=== PATIENT | female | born 1995 | race Caucasian/White ===

== ENCOUNTER 2021-07-09 19:55 | Emergency (ER) | payer OTHER ==
[2021-07-09 21:02] LABS: HEMOGLOBIN 14.5 gm/dl (12.3-15.3); RED BLOOD COUNT 4.69 M/UL (4.00-5.10); WHITE BLOOD COUNT 10.8 K/UL (4.5-11.0)
[2021-07-09 21:25] LABS: BUN/CREATININE RATIO 20 (0-10)
[2021-07-10] MEDS ORDERED: IBUPROFEN600 MG PO (01:07)
[2021-07-10] MEDS ORDERED: ANUSOL-HC25 MG PR (01:07)
[2021-07-10] MEDS ORDERED: MIRALAX17 GM PO (01:07)
== END 2021-07-10 01:17 | disposition home or self-care (01) ==
LOC: ER1 19:55
PROVIDERS: Physician Assistant Medical
DX: S36.63XA Laceration of rectum, initial encounter (principal); F17.210 Nicotine dependence, cigarettes, uncomplicated; X58.XXXA Exposure to other specified factors, initial encounter
CPT/HCPCS: 80053; 85025; 99283

== ENCOUNTER 2021-08-04 06:39 | Emergency (ER) | payer OTHER ==
[~2021-08-04 06:39] MED LIST: ANUSOL-HC25 MG PR; IBUPROFEN600 MG PO; MIRALAX17 GM PO
[2021-08-04] MEDS ORDERED: AMOXICILLIN500 M1 PO (10:29)
== END 2021-08-04 10:42 | disposition home or self-care (01) ==
LOC: ER1 06:39
DX: O99.611 Diseases of the digestive system complicating pregnancy, first trimester (principal); K02.9 Dental caries, unspecified; O99.331 Smoking (tobacco) complicating pregnancy, first trimester; F17.290 Nicotine dependence, other tobacco product, uncomplicated; Z3A.00 Weeks of gestation of pregnancy not specified
CPT/HCPCS: 84703; 99282

== ENCOUNTER 2021-10-03 20:50 | Emergency (ER) | payer OTHER ==
[~2021-10-03 20:50] MED LIST changes: +AMOXICILLIN500 M1 PO
== END 2021-10-04 02:25 | disposition home or self-care (01) ==
LOC: ER1 20:50
DX: O98.512 Other viral diseases complicating pregnancy, second trimester (principal); U07.1 COVID-19; O99.332 Smoking (tobacco) complicating pregnancy, second trimester; F17.210 Nicotine dependence, cigarettes, uncomplicated; Z90.89 Acquired absence of other organs; Z90.49 Acquired absence of other specified parts of digestive tract; Z3A.14 14 weeks gestation of pregnancy
CPT/HCPCS: 99283